=== PATIENT | female | born 1975 | race Two or more races ===

== ENCOUNTER → 2017-10-27 | Outpatient (CLI) | payer MEDICAID ==
--- NOTE | 2017-10-28 12:10 | MM ---
Reason for exam: screening (asymptomatic). Last mammogram was performed 1 year and 9 months ago. History: Benign US LT VAD breast biopsy of the left breast, December 05, 2012. Benign left breast needle localization of the left breast, August 23, 2009. Benign left breast needle localization add of the left breast, August 23, 2009. Cancelled Left US Needle Biopsy of the left breast, July 17, 2009. Took hormonal contraceptives for 8 years beginning at age 14. Physical Findings: A clinical breast exam by your physician is recommended on an annual basis and results should be correlated with mammographic findings. MG 3D Screening Mammo W/Cad Bilateral CC and MLO view(s) were taken. Prior study comparison: February 07, 2016, bilateral MG screening mammo w CAD. October 27, 2012, CAD bilateral diagnostic mammogram. The breast tissue is extremely dense which could obscure a lesion on mammography. Previous mammotome biopsy in the left breast. There is no dominant lesion. Asymmetric breast tissue left upper outer quadrant stable since 2008. ASSESSMENT: Benign, BI-RAD 2 RECOMMENDATION: Routine screening mammogram of both breasts in 1 year.
== END | disposition home or self-care (01) ==
LOC: RADMAMWWP 07:17
PROVIDERS: ATTEND Obstetrics & Gynecology
DX: Z12.31 Encounter for screening mammogram for malignant neoplasm of breast (principal)
CPT/HCPCS: 77063; 77067

== ENCOUNTER 2018-03-10 11:09 | Day surgery (SDC) | payer MEDICAID ==
[2018-03-09 10:15] VITALS: BMI 22.1
[~2018-03-10 11:09] MED LIST: DEXAMETHASONE SOD PHOSPHATE 10 MG/ML 1 ML VIAL IV ONE; HYDROmorphone 0.5 MG/0.5 ML SYRINGE IVP PRN; LACTATED RINGERS 1,000 ML IV SCH; ONDANSETRON 4 MG/2 ML VIAL IVP ONE
[2018-03-10 12:27] VITALS: RESP 16; TEMP 97.8
[2018-03-10] MEDS ORDERED: LIDOCAINE 1% 20 ML VIAL (10MG/ML) FOR IV START INTRADERMA ONE (12:40)
[2018-03-10] MEDS ORDERED: MIDAZOLAM 2 MG/2 ML VIAL ONE (13:36)
[2018-03-10] MEDS ORDERED: fentaNYL (PF) 50 MCG/ML 2 ML AMP ONE (13:36)
[2018-03-10] MEDS ORDERED: PROPOFOL 10 MG/ML 20 ML VIAL IV ONE (13:36)
[2018-03-10] MEDS ORDERED: LIDOCAINE 1%-EPI 1:100,000 30 ML VIAL SQ ONE ×2 (13:48)
--- NOTE | 2018-03-10 14:10 | P.OP ---
Date of Procedure: 03/10/18 Preoperative Diagnosis: Soft tissue mass right groin Postoperative Diagnosis: Same Procedure(s) Performed: Excision soft tissue mass right groin Anesthesia: MAC Surgeon: Giles Perez IV fluids (ml): 2 Pathology: none sent Condition: stable Disposition: PACU Description of Procedure: Patient is brought operative suite remained in the supine position underwent sedation per department of anesthesia she was prepped and draped in usual sterile fashion timeout was performed correct patient correct procedure correct site was verified an elliptical incision was made after local anesthetic was used to anesthetize the skin and subcutaneous tissues over the right groin a 2 cm elliptical incision was made carried down there was a small cystic structure this was removed it was in the superficial subcutaneous tissues. Hemostasis was achieved wound was then closed with 3-0 Vicryl subdermal followed by 4-0 Monocryl running subcuticular Steri-Strips and sterile dressing was applied patient tolerated procedure well no apparent complications
[2018-03-10 15:19] VITALS: BP 105/70; PULSE 47
== END 2018-03-10 15:16 | disposition home or self-care (01) ==
LOC: OR 11:09
PROVIDERS: ATTEND Student in an Organized Health Care Education/Training Program
DX: M79.89 Other specified soft tissue disorders (principal); Z80.8 Family history of malignant neoplasm of other organs or systems
CPT/HCPCS: 81025; 88305; 27047; J2250; J1100; J2405; J3010; J2704; 88304

== ENCOUNTER → 2019-10-19 | Outpatient (CLI) | payer MEDICAID ==
--- NOTE | 2019-10-20 08:10 | US ---
EXAMINATION TYPE: US soft tissue head/neck DATE OF EXAM: 10/19/2019 COMPARISON: NONE CLINICAL HISTORY: R59 Enlarged lymph nodes. TECHNIQUE/FINDINGS: Grayscale and color ultrasound were performed of the patient's palpable abnormali ties of the bilateral neck. Bilateral neck scanned: superior to right thyroid a lymph node is seen = 2.7 x 1.8 x 0.5cm and at le ft superior neck a lymph node is seen at palpable = 1.8 x 0.9 x 0.5cm. IMPRESSION: Cervical chain lymph nodes are elongated but within normal limits of size in short axis ( standard to evaluate for enlargement). Lymph nodes are likely physiologic or reactive. If there is cl inical interval growth repeat ultrasound could assess for any change.
== END | disposition home or self-care (01) ==
LOC: RADUSMAIN 15:50
PROVIDERS: ATTEND Obstetrics & Gynecology
DX: R59.0 Localized enlarged lymph nodes (principal)
CPT/HCPCS: 76536

== ENCOUNTER 2019-11-14 09:19 | Observation (INO) | payer MEDICAID ==
[2019-11-14] MEDS ORDERED: KETOROLAC 30 MG/ML 1 ML VIAL IVP STA (10:08)
[2019-11-14] MEDS ORDERED: SODIUM CHLORIDE 0.9% 1,000 ML IV STA (10:08)
[2019-11-14] MEDS ORDERED: ONDANSETRON 4 MG/2 ML VIAL IVP STA (10:08)
--- NOTE | 2019-11-14 10:18 | ED ---
Abdominal Pain HPI - General Chief Complaint: Abdominal Pain Stated Complaint: abd pain Time Seen by Provider: 11/14/19 09:52 Source: patient, RN notes reviewed Mode of arrival: ambulatory Limitations: no limitations - History of Present Illness Initial Comments: This a 43-year-old female presents emergency Department with chief complaint of right lower quadrant abdominal pain. Patient states that she started with some mid abdominal pain yesterday with associated nausea vomiting driving. Patient states that she does not tolerate any oral intake recently. Patient states the pain has subsided some but is still very uncomfortable. Patient denies any back pain, chest or shortness of breath she states twisting bending and movement does make the pain worse but denies any trauma. She states pain started while she was at work yesterday. Patient has no complaints of dysuria or hematuria states that she's had decreased urine output. - Related Data Home Medications Medication Instructions Recorded Confirmed Acetaminophen Tab [Tylenol] 325 mg PO Q4H PRN 11/14/19 11/14/19 Allergies Allergy/AdvReac Type Severity Reaction Status Date / Time No Known Allergies Allergy Verified 11/14/19 12:22 Review of Systems ROS Statement: Those systems with pertinent positive or pertinent negative responses have been documented in the HPI. ROS Other: All systems not noted in ROS Statement are negative. Past Medical History Past Medical History: No Reported History History of Any Multi-Drug Resistant Organisms: None Reported Past Surgical History: Breast Surgery, Orthopedic Surgery Additional Past Surgical History / Comment(s): Right knee surgery, lymph node removed due to cat scratch fever, biopsy and lumpectomy left breast. Past Anesthesia/Blood Transfusion Reactions: Motion Sickness Past Psychological History: No Psychological Hx Reported Smoking Status: Former smoker Past Alcohol Use History: Occasional Past Drug Use History: None Reported - Past Family History Father Family Medical History: Cancer Additional Family Medical History / Comment(s): Skin cancer. General Exam Limitations: no limitations General appearance: alert, in no apparent distress Head exam: Present: atraumatic, normocephalic, normal inspection Eye exam: Present: normal appearance, PERRL, EOMI. Absent: scleral icterus, conjunctival injection, periorbital swelling Respiratory exam: Present: normal lung sounds bilaterally. Absent: respiratory distress, wheezes, rales, rhonchi, stridor Cardiovascular Exam: Present: regular rate, normal rhythm, normal heart sounds. Absent: systolic murmur, diastolic murmur, rubs, gallop, clicks GI/Abdominal exam: Present: soft, tenderness (Moderate right lower quadrant tenderness), normal bowel sounds. Absent: distended, guarding, rebound, rigid Back exam: Absent: CVA tenderness (R), CVA tenderness (L) Neurological exam: Present: alert Skin exam: Present: warm, dry, intact, normal color. Absent: rash Course Vital Signs 11/14/19 09:32 Temperature 97.9 F Pulse Rate 68 Respiratory 18 Rate Blood Pressure 119/78 O2 Sat by Pulse 99 Oximetry Medical Decision Making - Medical Decision Making 43-year-old female presented for abdominal pain CT is consistent with acute appendicitis. Patient has established relationship with Dr. dockery case discussed with Dr. dockery who will come and evaluate the patient and admit - Lab Data Result diagrams: 11/14/19 10:15 11/14/19 10:15 Lab Results 11/14/19 11/14/19 11/14/19 Range/Units 09:50 10:15 10:15 WBC 13.3 H (3.8-10.6) k/uL RBC 4.42 (3.80-5.40) m/uL Hgb 14.4 (11.4-16.0) gm/dL Hct 42.8 (34.0-46.0) % MCV 97.0 (80.0-100.0) fL MCH 32.6 (25.0-35.0) pg MCHC 33.6 (31.0-37.0) g/dL RDW 11.6 (11.5-15.5) % Plt Count 156 (150-450) k/uL Neutrophils % 87 % Lymphocytes % 7 % Monocytes % 4 % Eosinophils % 1 % Basophils % 0 % Neutrophils # 11.6 H (1.3-7.7) k/uL Lymphocytes # 1.0 (1.0-4.8) k/uL Monocytes # 0.5 (0-1.0) k/uL Eosinophils # 0.1 (0-0.7) k/uL Basophils # 0.0 (0-0.2) k/uL Sodium 135 L (137-145) mmol/L Potassium 4.2 (3.5-5.1) mmol/L Chloride 104 (98-107) mmol/L Carbon Dioxide 24 (22-30) mmol/L Anion Gap 7 mmol/L BUN 15 (7-17) mg/dL Creatinine 0.66 (0.52-1.04) mg/dL Est GFR (CKD-EPI)AfAm >90 (>60 ml/min/1.73 sqM) Est GFR (CKD-EPI)NonAf >90 (>60 ml/min/1.73 sqM) Glucose 119 H (74-99) mg/dL Calcium 9.3 (8.4-10.2) mg/dL Total Bilirubin 0.7 (0.2-1.3) mg/dL AST 22 (14-36) U/L ALT 18 (4-34) U/L Alkaline Phosphatase 62 (38-126) U/L Total Protein 7.2 (6.3-8.2) g/dL Albumin 4.5 (3.5-5.0) g/dL Amylase 104 (30-110) U/L Lipase 164 (23-300) U/L Urine Color Yellow Urine Appearance Clear (Clear) Urine pH 6.5 (5.0-8.0) Ur Specific [place] 1.033 (1.001-1.035) Urine Protein Trace H (Negative) Urine Glucose (UA) Negative (Negative) Urine Ketones 1+ H (Negative) Urine Blood Negative (Negative) Urine Nitrite Negative (Negative) Urine Bilirubin Negative (Negative) Urine Urobilinogen <2.0 (<2.0) mg/dL Ur Leukocyte Esterase Negative (Negative) Disposition Clinical Impression: Acute appendicitis Disposition: ADMITTED IP TO THIS [facility] Condition: Stable Referrals: None,Stated [Primary Care Provider] - 1-2 days
[2019-11-14 10:26] LABS: Appearance,Urine Clear (Clear); Bilirubin,Urine Negative (Negative); Blood,Urine Negative (Negative); Color,Urine Yellow; Glucose,Urine (UA) Negative (Negative); Ketones,Urine 1+ (Negative); Leukocyte Esterase,Urine Negative (Negative); Nitrite,Urine Negative (Negative); PH, Urine 6.5 (5.0-8.0); Protein,Urine Trace (Negative); Specific Gravity,Urine 1.033 (1.001-1.035); Urobilinogen,Urine <2.0 mg/dL (<2.0)
[2019-11-14 10:42] LABS: Basophils % (A) 0 %; Eosinophils # (A) 0.1 k/uL (0-0.7); Eosinophils % (A) 1 %; HCT 42.8 % (34.0-46.0); HGB 14.4 gm/dL (11.4-16.0); Lymphocytes % (A) 7 %; MCH 32.6 pg (25.0-35.0); MCHC 33.6 g/dL (31.0-37.0); Mean Platelet Volume 9.8; Monocytes # (A) 0.5 k/uL (0-1.0); Monocytes % (A) 4 %; Neutrophils # (A) 11.6 k/uL (1.3-7.7); Neutrophils % (A) 87 %; Platelet Count 156 k/uL (150-450); RBC 4.42 m/uL (3.80-5.40); RDW 11.6 % (11.5-15.5); WBC 13.3 k/uL (3.8-10.6)
[2019-11-14 11:07] LABS: ALT 18 U/L (4-34); AST 22 U/L (14-36); African American GFR (CKD) >90 (>60 ml/min/1.73 sqM); Albumin 4.5 g/dL (3.5-5.0); Alkaline Phosphatase 62 U/L (38-126); Amylase 104 U/L (30-110); Anion Gap 7 mmol/L; Blood Urea Nitrogen 15 mg/dL (7-17); Calcium 9.3 mg/dL (8.4-10.2); Carbon Dioxide 24 mmol/L (22-30); Chloride 104 mmol/L (98-107); Glucose 119 mg/dL (74-99); Non-African American GFR(CKD) >90 (>60 ml/min/1.73 sqM); Potassium 4.2 mmol/L (3.5-5.1); Sodium 135 mmol/L (137-145); Total Bilirubin 0.7 mg/dL (0.2-1.3); Total Protein 7.2 g/dL (6.3-8.2)
--- NOTE | 2019-11-14 12:01 | CT ---
EXAMINATION TYPE: CT abdomen pelvis w con DATE OF EXAM: 11/14/2019 COMPARISON: NONE HISTORY: 43-year-old female RLQ pain TECHNIQUE: Contiguous axial scanning of the abdomen and pelvis following administration of 100 ml Iso jordon 300 IV contrast. Delayed images through the kidneys and coronal/sagittal reconstructions perform ed. CT DLP: 682.9 mGycm Automated exposure control for dose reduction was used. FINDINGS: LUNG BASES: No significant abnormality is appreciated. LIVER/GB: Subcentimeter 9 mm hypodensity left hepatic dome too small for accurate CT characterization , probable tiny cyst. Similar probable tiny cyst right hepatic lobe. Liver borderline in size at 17.1 cm. Portal venous system is patent. No biliary ductal dilatation. Gallbladder appears within normal limits. PANCREAS: No significant abnormality is seen. SPLEEN: No significant abnormality is seen. ADRENALS: No significant abnormality is seen. KIDNEYS: Subcentimeter cortical cyst medial upper pole left kidney. Symmetric uptake and excretion of contrast from the kidneys. REPRODUCTIVE ORGANS: Mild circumferential bladder wall thickening. Uterus anteverted. Small amount of cul-de-sac free fluid. Pelvic phleboliths. Left periuterine varices may be seen with pelvic congesti on syndrome. BOWEL: Numerous fluid-filled small bowel loops lower abdomen and pelvis. Appendix is identified flu id distended, dilated up to 1.4 cm with number of appendicoliths measuring up to 9 mm. Moderate surro unding edema and inflammation in the right lower quadrant. No abscess formation or free air. BONES: Facet arthropathy mid to lower lumbar spine with grade 1 anterolisthesis at L4-L5. IMPRESSION: 1. EXAM POSITIVE FOR ACUTE APPENDICITIS WITH MILD TO MODERATE SURROUNDING INFLAMMATION AND MILD PELVI C ASCITES, LIKELY REACTIVE. SMALL APPENDICOLITHS MEASURING UP TO 9 MM. NO ABSCESS OR FREE AIR. 2. AN ASSOCIATED REGIONAL SMALL BOWEL ILEUS. 3. MILD CIRCUMFERENTIAL BLADDER WALL THICKENING. CORRELATE TO EXCLUDE CYSTITIS. 4. PROMINENT VESSELS IN THE LEFT ADNEXA MAY BE SEEN WITH PELVIC CONGESTION SYNDROME. CLINICALLY CORRE LATE.
[2019-11-14] MEDS ORDERED: PIPERACILLIN-TAZOBACTAM 3.375 GM in SODIUM CHLORIDE 0.9% 100 ML IVPB STA ×2 (12:07→12:24)
[2019-11-14] MEDS ORDERED: ONDANSETRON 4 MG/2 ML VIAL IVP PRN (12:28)
[2019-11-14] MEDS ORDERED: SODIUM CHLORIDE 0.9% 1,000 ML IV SCH (12:30)
[2019-11-14] MEDS ORDERED: HEPARIN SODIUM,PORCINE 5,000 UNIT/ML 1 ML VIAL SQ STA (12:37)
--- NOTE | 2019-11-14 13:04 | P.GSHP ---
History of Present Illness H&P Date: 11/14/19 This is a 43-year-old female well known to me from a previous surgery. Patient presented to the emergency department with a 24-hour history of abdominal pain she states is generalized abdominal pain and discomfort yesterday afternoon she had decreased appetite and some nausea. Overnight the pain began getting worse and this morning her pain was located in the right lower quadrant. She's never had pain like this before in the past. She denies any fevers. She denies any change in her bowel movement. She has no family history of Crohn's disease no personal history of inflammatory bowel disease. Computed tomography scan performed in the emergency department revealed dilated appendix with a ppendicolith consistent with appendicitis. Past Medical History Past Medical History: No Reported History History of Any Multi-Drug Resistant Organisms: None Reported Past Surgical History: Breast Surgery, Orthopedic Surgery Additional Past Surgical History / Comment(s): Right knee surgery, lymph node removed due to cat scratch fever, biopsy and lumpectomy left breast. Past Anesthesia/Blood Transfusion Reactions: Motion Sickness Past Psychological History: No Psychological Hx Reported Smoking Status: Former smoker Past Alcohol Use History: Occasional Past Drug Use History: None Reported - Past Family History Father Family Medical History: Cancer Additional Family Medical History / Comment(s): Skin cancer. Medications and Allergies Home Medications Medication Instructions Recorded Confirmed Type Acetaminophen Tab [Tylenol] 325 mg PO Q4H PRN 11/14/19 11/14/19 History Allergies Allergy/AdvReac Type Severity Reaction Status Date / Time No Known Allergies Allergy Verified 11/14/19 12:22 Surgical - Exam Osteopathic Statement: *. No significant issues noted on an osteopathic structural exam other than those noted in the History and Physical/Consult. Vital Signs Temp Pulse Resp BP Pulse Ox 97.9 F 68 18 119/78 99 11/14/19 09:32 11/14/19 09:32 11/14/19 09:32 11/14/19 09:32 11/14/19 09:32 - General well developed, well nourished, no distress - Neck trachea midline - Respiratory normal expansion, normal respiratory effort - Cardiovascular Rhythm: regular - Abdomen Soft nondistended there is tenderness palpation the right lower quadrant. No rebound rigidity or guarding - Psychiatric oriented to time, oriented to person, oriented to place Results - Labs 11/14/19 10:15 11/14/19 10:15 Abnormal Lab Results - Last 24 Hours (Table) 11/14/19 11/14/19 11/14/19 Range/Units 09:50 10:15 10:15 WBC 13.3 H (3.8-10.6) k/uL Neutrophils # 11.6 H (1.3-7.7) k/uL Sodium 135 L (137-145) mmol/L Glucose 119 H (74-99) mg/dL Urine Protein Trace H (Negative) Urine Ketones 1+ H (Negative) Diabetes panel 11/14/19 Range/Units 10:15 Sodium 135 L (137-145) mmol/L Potassium 4.2 (3.5-5.1) mmol/L Chloride 104 (98-107) mmol/L Carbon Dioxide 24 (22-30) mmol/L BUN 15 (7-17) mg/dL Creatinine 0.66 (0.52-1.04) mg/dL Glucose 119 H (74-99) mg/dL Calcium 9.3 (8.4-10.2) mg/dL AST 22 (14-36) U/L ALT 18 (4-34) U/L Alkaline Phosphatase 62 (38-126) U/L Total Protein 7.2 (6.3-8.2) g/dL Albumin 4.5 (3.5-5.0) g/dL Calcium panel 11/14/19 Range/Units 10:15 Calcium 9.3 (8.4-10.2) mg/dL Albumin 4.5 (3.5-5.0) g/dL Pituitary panel 11/14/19 Range/Units 10:15 Sodium 135 L (137-145) mmol/L Potassium 4.2 (3.5-5.1) mmol/L Chloride 104 (98-107) mmol/L Carbon Dioxide 24 (22-30) mmol/L BUN 15 (7-17) mg/dL Creatinine 0.66 (0.52-1.04) mg/dL Glucose 119 H (74-99) mg/dL Calcium 9.3 (8.4-10.2) mg/dL Adrenal panel 11/14/19 Range/Units 10:15 Sodium 135 L (137-145) mmol/L Potassium 4.2 (3.5-5.1) mmol/L Chloride 104 (98-107) mmol/L Carbon Dioxide 24 (22-30) mmol/L BUN 15 (7-17) mg/dL Creatinine 0.66 (0.52-1.04) mg/dL Glucose 119 H (74-99) mg/dL Calcium 9.3 (8.4-10.2) mg/dL Total Bilirubin 0.7 (0.2-1.3) mg/dL AST 22 (14-36) U/L ALT 18 (4-34) U/L Alkaline Phosphatase 62 (38-126) U/L Total Protein 7.2 (6.3-8.2) g/dL Albumin 4.5 (3.5-5.0) g/dL Assessment and Plan Assessment: Acute appendicitis Plan: I discussed laparoscopic appendectomy possible open with the patient risks benefits and alternatives including risks of bleeding infection damage to surrounding tissue need for further operation were all discussed with the patient she stated she understood agreed and consented. Patient will be kept nothing by mouth started on IV antibiotics Zosyn and IV fluids. Further recommendations to follow surgery
[2019-11-14] MEDS ORDERED: IV FLUID CONTINUATION 1,000 ML IV ONE (13:15)
[2019-11-14 13:21] VITALS: RESP 16
[2019-11-14] MEDS ORDERED: SUCCINYLCHOLINE CHLORIDE 100 MG/5 ML SYR IV ONE (13:30)
[2019-11-14] MEDS ORDERED: MIDAZOLAM 2 MG/2 ML VIAL ONE (13:30)
[2019-11-14] MEDS ORDERED: PROPOFOL 10 MG/ML 20 ML VIAL IV ONE (13:30)
[2019-11-14] MEDS ORDERED: HYDROmorphone (PF) 1 MG/ML ONE (13:30)
[2019-11-14] MEDS ORDERED: DEXAMETHASONE SOD PHOS (MDV) 100 MG/10 ML VIAL ONE (13:30)
[2019-11-14] MEDS ORDERED: ONDANSETRON 4 MG/2 ML VIAL ONE (13:30)
[2019-11-14] MEDS ORDERED: fentaNYL (PF) 50 MCG/ML 2 ML AMP ONE (13:30)
[2019-11-14] MEDS ORDERED: GLYCOPYRROLATE 0.2 MG/ML 2 ML VIAL ONE (13:30)
[2019-11-14] MEDS ORDERED: ROCURONIUM BROMIDE 10 MG/ML 5 ML VIAL IV ONE (13:30)
[2019-11-14] MEDS ORDERED: NEOSTIGMINE 1 MG/ML 10 ML VIAL ONE (13:30)
[2019-11-14] MEDS ORDERED: KETOROLAC 30 MG/ML 1 ML VIAL ONE (13:30)
[2019-11-14] MEDS ORDERED: LIDOCAINE 1% INJ 10MG/ML (20 ML MDV) ONE (13:30)
[2019-11-14] MEDS ORDERED: BUPIVACAINE-EPI 0.5%-1:200,000 10 ML VIAL SQ ONE ×2 (13:52)
[2019-11-14] MEDS ORDERED: LACTATED RINGERS 1,000 ML IV ONE (14:10)
[2019-11-14] MEDS ORDERED: HYDROmorphone 0.5 MG/0.5 ML SYRINGE IVP PRN (14:51)
[2019-11-14] MEDS ORDERED: NALOXONE 0.4 MG/ML 1 ML VIAL IV PRN (14:51)
--- NOTE | 2019-11-14 14:51 | P.OP ---
Date of Procedure: 11/14/19 Preoperative Diagnosis: Acute appendicitis Postoperative Diagnosis: Same Procedure(s) Performed: Laparoscopic appendectomy Anesthesia: MI Surgeon: Giles Perez Estimated Blood Loss (ml): 5 Condition: stable Disposition: PACU Description of Procedure: Patient is brought back to the operative suite remained in supine position underwent general endotracheal anesthesia per Department of anesthesia prepped and draped in usual sterile fashion timeout performed correct patient correct procedure correct site was verified 5 mm port was placed at palmers point under direct visualization the abdomen was insufflated no injuries were noted a 5 mm port was placed suprapubic and a 12 mm port was placed in the left lower quadrant. Patient was placed in Trendelenburg right side up. The appendix was visualized and noted to be acutely inflamed and dilated. There is no sign of perforation. The appendix was grasped and adhesions were taken down bluntly. The mesoappendix is taken down with a LigaSure device. The base of the appendix at the base the cecum was stapled across with a 45 mm purple load Endo KAMERON stapler. Appendix was placed in an Endo Catch bag and removed through the 12 mm port site. The staple line was inspected for hemostasis and it was noted. Abdomen was irrigated and suctioned the 12 m port site fascia was closed with 0 Vicryl in an interrupted fashion with the aid of a Kiel-Frankie suture passer. The abdomen was desufflated and all ports removed under direct visualization. Skin was closed with 4-0 Monocryl sutures and skin glue. Patient tolerated procedure well no apparent complications
[2019-11-14] MEDS ORDERED: LACTATED RINGERS 1,000 ML IV SCH (15:00)
[2019-11-14] MEDS: HYDROcodone/APAP 5-325MG 1 EACH TAB PO PRN (20:07)
[2019-11-15] MEDS: HYDROcodone/APAP 5-325MG 1 EACH TAB PO PRN ×2 (06:15→10:21)
[2019-11-15 08:44] VITALS: BP 96/65; PULSE 51; TEMP 98.1
== END 2019-11-15 10:27 | disposition home or self-care (01) ==
LOC: EC 09:19 → 6PED 12:51
PROVIDERS: ADMIT Student in an Organized Health Care Education/Training Program; ATTEND Student in an Organized Health Care Education/Training Program
DX: K35.890 Other acute appendicitis without perforation or gangrene (principal); Z87.891 Personal history of nicotine dependence; Z80.8 Family history of malignant neoplasm of other organs or systems
CPT/HCPCS: 96361; 96374; 96375; 99285; 36415; 88304; 80053; 82150; 83690; 85025; 81003; 84703; 74177; 44970; G0378 ×2; J2543; J1644; J2405; J1885; Q9967

== ENCOUNTER → 2020-02-13 | Outpatient (CLI) | payer MEDICAID ==
--- NOTE | 2020-02-15 10:00 | MM ---
Reason for exam: screening (asymptomatic). Last mammogram was performed 2 years and 4 months ago. History: Benign US LT VAD breast biopsy of the left breast, December 05, 2012. Benign left breast needle localization of the left breast, August 23, 2009. Benign left breast needle localization add of the left breast, August 23, 2009. Cancelled Left US Needle Biopsy of the left breast, July 17, 2009. Took hormonal contraceptives for 8 years beginning at age 14. Physical Findings: A clinical breast exam by your physician is recommended on an annual basis and results should be correlated with mammographic findings. MG 3D Screening Mammo W/Cad Bilateral CC and MLO view(s) were taken. Prior study comparison: October 27, 2017, bilateral MG 3d screening mammo w/cad. February 07, 2016, bilateral MG screening mammo w CAD. The breast tissue is extremely dense which could obscure a lesion on mammography. Finding #1: There is a 40 mm circumscribed oval mass in the upper outer quadrant of the left breast. Finding #2: There are typically benign round calcifications in both breasts. Previous mammotome biopsy in the left breast. ASSESSMENT: Incomplete: need additional imaging evaluation, BI-RAD 0 RECOMMENDATION: Ultrasound of the left breast. [facility] will attempt to contact patient to return for ultrasound.
== END | disposition home or self-care (01) ==
LOC: RADMAMWWP 15:33
PROVIDERS: ATTEND Obstetrics & Gynecology
DX: Z12.31 Encounter for screening mammogram for malignant neoplasm of breast (principal)
CPT/HCPCS: 77063; 77067

== ENCOUNTER → 2020-02-16 | Outpatient (CLI) | payer MEDICAID ==
--- NOTE | 2020-02-20 10:40 | USB ---
Reason for exam: additional evaluation requested from abnormal screening. History: Benign US LT VAD breast biopsy of the left breast, December 05, 2012. Benign left breast needle localization of the left breast, August 23, 2009. Benign left breast needle localization add of the left breast, August 23, 2009. Cancelled Left US Needle Biopsy of the left breast, July 17, 2009. Took hormonal contraceptives for 8 years beginning at age 14. US Breast Workup Limited LT Left limited breast ultrasound including focal area of concern, retroareolar and axilla demonstrates no cystic or solid lesion seen. Scanned 12-3 o'clock. The large global asymmetry corresponds to an ovoid island of nonshadowing tissue measuring 5.6 x 5.3 x 1.6cm. Mammographically stable. These results were verbally communicated with the patient and result sheet given to the patient on 02/16/20. ASSESSMENT: Benign, BI-RAD 2 RECOMMENDATION: Return to routine screening mammogram schedule for both breasts.
== END | disposition home or self-care (01) ==
LOC: RADUSWWP 07:58
PROVIDERS: ATTEND Obstetrics & Gynecology
DX: R92.8 Other abnormal and inconclusive findings on diagnostic imaging of breast (principal)

== ENCOUNTER → 2020-12-30 | Outpatient (CLI) | payer MEDICAID ==
--- NOTE | 2020-12-30 09:16 | MM ---
Reason for exam: clinical finding. Last mammogram was performed 11 months ago. History: Benign US LT VAD breast biopsy of the left breast, December 05, 2012. Benign left breast needle localization of the left breast, August 23, 2009. Benign left breast needle localization add of the left breast, August 23, 2009. Cancelled Left US Needle Biopsy of the left breast, July 17, 2009. Took hormonal contraceptives for 8 years beginning at age 14. Indicated problem(s): lump or thickening in the left breast. Physical Findings: Nurse Summary: 1.5cm nodule in the left breast at 8 o'clock (nurse mj). MG 3D Diag Mammo W/Cad LT CC and MLO view(s) were taken of the left breast. Prior study comparison: February 13, 2020, bilateral MG 3d screening mammo w/cad. October 27, 2017, bilateral MG 3d screening mammo w/cad. The breast tissue is extremely dense which could obscure a lesion on mammography. There are benign appearing round calcifications in the left breast. There is chronic nodularity in the left breast. There is no discrete abnormality. These results were verbally communicated with the patient and result sheet given to the patient on 12/30/20. ASSESSMENT: Incomplete: need additional imaging evaluation, BI-RAD 0 RECOMMENDATION: Ultrasound of the left breast.
--- NOTE | 2020-12-30 09:17 | USB ---
Reason for exam: additional evaluation requested from abnormal screening. History: Benign US LT VAD breast biopsy of the left breast, December 05, 2012. Benign left breast needle localization of the left breast, August 23, 2009. Benign left breast needle localization add of the left breast, August 23, 2009. Cancelled Left US Needle Biopsy of the left breast, July 17, 2009. Took hormonal contraceptives for 8 years beginning at age 14. US Breast Limited LT Technologist: Paula Ventura Left limited breast ultrasound including focal area of concern, retroareolar and axilla demonstrates a 0.5 x 0.6 x 0.3cm cystic lesion at 9 o'clock. Overall fibrocystic change. Scanned 6-9 o'clock. These results were verbally communicated with the patient and result sheet given to the patient on 12/30/20. ASSESSMENT: Benign, BI-RAD 2 RECOMMENDATION: Return to routine screening mammogram schedule for both breasts. Manage patient on a clinical basis.
== END | disposition home or self-care (01) ==
LOC: RADMAMWWP 07:22
PROVIDERS: ATTEND Obstetrics & Gynecology
DX: N63.20 Unspecified lump in the left breast, unspecified quadrant (principal); R92.1 Mammographic calcification found on diagnostic imaging of breast
CPT/HCPCS: 77061; 77065

== ENCOUNTER → 2022-02-24 | Outpatient (CLI) | payer MEDICAID ==
--- NOTE | 2022-02-26 17:53 | MM ---
Reason for Exam: Screening (asymptomatic). Last mammogram was performed 2 year(s) and 1 month(s) ago. Patient History: Menarche at age 10. First Full-Term at age 22. Patient has history of breast feeding. Hormonal Contraceptives for 8 years from age 14 until age 22. 12/05/2012, Benign Core Biopsy on the left side. 08/23/2009, Benign Excisional Biopsy on the left side. 08/23/2009, Benign Excisional Biopsy on the left side. 07/17/2009, Cancelled Left US Needle Biopsy on the left side. Last menstrual period: 01/30/2022 Risk Values: Jessica 5 year model risk: 1.6%. NCI Lifetime model risk: 12.5%. Prior Study Comparison: 10/27/2017 Bilateral Screening Mammogram, [facility]. 02/13/2020 Bilateral Screening Mammogram, [facility]. 12/30/2020 Left Diagnostic Mammogram, [facility]. Tissue Density: The breast tissue is extremely dense which could obscure a lesion on mammography. Findings: Analyzed By CAD. There is a large spherical density with partially circumscribed origins in the upper outer aspect left breast, present previously. No suspicious groups of microcalcifications, spiculated or lobular masses, Architectural distortion or other secondary signs of malignancy are mammographically apparent. Overall Assessment: Benign, BI-RAD 2 Management: Screening Mammogram of both breasts in 1 year. A negative mammogram report should not preclude additional follow up of suspicious palpable abnormalities. Patient should continue monthly self breast exam. A clinical breast exam by your physician is recommended on an annual basis and results should be correlated with mammographic findings. Electronically signed and approved by: Rashid Major D.O. Radiologis
== END | disposition home or self-care (01) ==
LOC: RADMAMWWP 14:01
PROVIDERS: ATTEND Obstetrics & Gynecology
DX: Z12.31 Encounter for screening mammogram for malignant neoplasm of breast (principal)
CPT/HCPCS: 77063; 77067